=== PATIENT | male | born 1970 | race Caucasian/White ===

== ENCOUNTER 2018-05-28 04:56 | Emergency (ER) | payer BC ==
[2018-05-28] MEDS ORDERED: traMADol TAB* 50 MG PO ONE (05:17)
[2018-05-28] MEDS ORDERED: Amoxicillin/Clavulanate TAB* 875 MG PO ONE (05:17)
--- NOTE | 2018-05-28 05:26 | ED ---
Throat Pain/Nasal Congestion - HPI Summary HPI Summary: Patient is a 47 y/o M w/ c/o left sided H[place], "vertigo", and left ear pain. He reports Sx onset two days ago. He reports experiencing "vertigo" when getting in and out of bed. Patient also reports jaw pain but denies vomiting. He denies PMHx. Patient notes allergy to Advil (patient's eyes puff up, per patient). Despite this, patient reports taking children's Advil [employer]. He reports a similar reaction to Tylenol. Patient denies any known allergies to antibiotics. On triage, pain is rated 5/10, heat is noted to alleviate Sx, nothing is reported to aggravate Sx. Home medications and allergies are reviewed. - History of Current Complaint Chief Complaint: EDEarPain Time Seen by Provider: 05/28/18 05:04 Hx Obtained From: Patient Onset/Duration: Lasting Days - two days onset, Still Present Severity: Moderate - 5/10 Associated Signs And Symptoms: Positive: Negative Cough: None - Allergies/Home Medications Allergies/Adverse Reactions: Allergies Allergy/AdvReac Type Severity Reaction Status Date / Time acetaminophen [From Tylenol] Allergy Unknown Eyes Verified 05/28/18 05:00 Itchy/Swollen/Red/Watery NSAIDS (Non-Steroidal Allergy Unknown Eyes Verified 05/28/18 04:57 Anti-Inflamma Itchy/Swollen/Red/Watery PMH/Surg Hx/FS Hx/Imm Hx Endocrine/Hematology History: Denies: Hx Diabetes Cardiovascular History: Denies: Hx Hypertension, Hx Pacemaker/ICD Respiratory History: Reports: Hx Asthma - years ago - ALLERGY RELATED History: Denies: Hx Renal Disease Sensory History: Denies: Hx Hearing Aid Psychiatric History: Denies: Hx Panic Disorder Infectious Disease History: No Infectious Disease History: Denies: Hx Clostridium Difficile, Hx Hepatitis, Hx Human Immunodeficiency Virus (HIV), Hx of Known/Suspected MRSA, Hx Shingles, Hx Tuberculosis, Hx Known/ Suspected VRE, Hx Known/Suspected VRSA, History Other Infectious Disease, Traveled Outside the [place] in Last 30 Days - Family History Known Family History: Positive: Other - Crohn's disease (brother) - Social History Alcohol Use: Occasionally Alcohol Amount: 2-3 beers 2-3 x per week Substance Use Type: Reports: None Hx Tobacco Use: No Smoking Status (MU): Never Smoked Tobacco Review of Systems Positive: Ear Ache - left ear pain Negative: Vomiting Positive: Other - jaw pain Neurological: Other - "vertigo" Positive: Headache - left sided All Other Systems Reviewed And Are Negative: Yes Physical Exam - Summary Physical Exam Summary: VITAL SIGNS: Reviewed. GENERAL: Patient is a well-developed and nourished male who is lying comfortable in the stretcher. Patient is not in any acute respiratory distress. HEAD AND FACE: No signs of trauma. No ecchymosis, hematomas or skull depressions. No sinus tenderness. EYES: PERRLA, EOMI x 2, No injected conjunctiva, no nystagmus. EARS: Hearing grossly intact. hyperemia of left TM. No other abnormal findings noted. MOUTH: Oropharynx within normal limits. NECK: Supple, trachea is midline, no adenopathy, no JVD, no carotid bruit, no c- spine tenderness, neck with full ROM. CHEST: Symmetric, no tenderness at palpation LUNGS: Clear to auscultation bilaterally. No wheezing or crackles. CVS: Regular rate and rhythm, S1 and S2 present, no murmurs or gallops appreciated. ABDOMEN: Soft, non-tender. No signs of distention. No rebound no guarding, and no masses palpated. Bowel sounds are normal. EXTREMITIES: FROM in all major joints, no edema, no cyanosis or clubbing. NEURO: Alert and oriented x 3. No acute neurological deficits. Speech is normal and follows commands. No meningeal signs. SKIN: Dry and warm Triage Information Reviewed: Yes Vital Signs On Initial Exam: Initial Vitals Temp Pulse Resp BP Pulse Ox 99.5 F 96 20 136/96 98 05/28/18 04:56 05/28/18 04:56 05/28/18 04:56 05/28/18 04:56 05/28/18 04:56 Vital Signs Reviewed: Yes Diagnostics - Vital Signs Vital Signs Temp Pulse Resp BP Pulse Ox 05/28/18 04:56 99.5 F 96 20 136/96 98 - Laboratory Lab Statement: Any lab studies that have been ordered have been reviewed, and results considered in the medical decision making process. Re-Evaluation - Re-Evaluation First Eval Re-Evaluation Time: 05:50 Comment: Patient will be discharged to home and is instructed to follow up with PCP in 1-2 days. EENT Course/Dx - Course Course Of Treatment: Patient is a 47 y/o M w/ c/o left sided H[place], "vertigo", and left ear pain. He reports Sx onset two days ago. He reports experiencing "vertigo" when getting in and out of bed. Patient also reports jaw pain but denies vomiting. He denies PMHx. Patient notes allergy to Advil (patient's eyes puff up, per patient). Despite this, patient reports taking children's Advil [employer]. He reports a similar reaction to Tylenol. Patient denies any known allergies to antibiotics. On triage, pain is rated 5/10, heat is noted to alleviate Sx, nothing is reported to aggravate Sx. Physical exam showed hyperemia of left TM. Neck is supple, no meningeal signs are noted. During ED course, patient was given ultram 50 mg PO ONCE and augmentin 875 mg PO UC ONCE. Patient will be discharged to home and is instructed to follow up with PCP in 1- 2 days. Dx of left otitis media. - Diagnoses Provider Diagnoses: Left otitis media Discharge - Sign-Out/Discharge Documenting (check all that apply): Patient Departure - discharge - Discharge Plan Condition: Stable Disposition: HOME Prescriptions: Amoxicillin/Clavulanate TAB* [Augmentin TAB 875*] 875 mg PO BID #20 tab traMADol TAB* [Ultram*] 50 mg PO Q6HR PRN #14 tab MDD 4 PRN Reason: Pain Patient Education Materials: Ear Infection (ED) Referrals: Son Bermudez MD [Primary Care Provider] - 2 Days Additional Instructions: RETURN TO THE EMERGENCY DEPARTMENT FOR CHANGING OR WORSENING SYMPTOMS. FOLLOW UP WITH PRIMARY CARE PHYSICIAN IN 1-2 DAYS. - Attestation Statements Document Initiated by Scribe: Yes Documenting Scribe: Wander Shah Provider For Whom Scribe is Documenting (Include Credential): Sandra Bertrand MD Scribe Attestation: Wander Schmidt , scribed for Sandra Bertrand MD on 05/28/18 at 0610.
[2018-05-28 06:05] VITALS: BP 130/95
== END 2018-05-28 06:04 | disposition home or self-care (01) ==
LOC: ED 04:56
DX: H66.92 Otitis media, unspecified, left ear (principal); Z88.6 Allergy status to analgesic agent
CPT/HCPCS: 99282; A9270-GY

== ENCOUNTER 2018-05-28 06:10 | Emergency (ER) | payer BC ==
[2018-05-28] MEDS ORDERED: NS 0.9% 1000 ML* 1,000 ML IV ONE (06:24)
[2018-05-28] MEDS ORDERED: Ketorolac INJ* 30 MG/ML 1 ML VIAL IV PUSH ONE (06:25)
[2018-05-28] MEDS ORDERED: Metoclopramide IV* 5 MG/ML 2 ML VIAL IV SLOW PU ONE (06:25)
[2018-05-28] MEDS ORDERED: diPHENhydraMINE IV* 50 MG/ML 1 ml VIAL (BENADRYL) SLOW PUSH ONE (06:25)
--- NOTE | 2018-05-28 06:29 | ED ---
Complex/Multi-Sys Presentation - HPI Summary HPI Summary: Patient is a 47 y/o M w/ c/o nausea, sweating, and feelings of near syncope. He was discharged from the ED minutes ago w/ Dx of left otitis media. During ED course, patient was given ultram 50 mg PO ONCE and augmentin 875 mg PO UC ONCE. While walking to his car, patient reports experiencing nausea, sweating, and feelings of near syncope. Home medications and allergies are reviewed. Patient states he is unsure if he is allergic to ibuprofen or not. On triage, pain is denied. - History Of Current Complaint Chief Complaint: EDDizziness Time Seen by Provider: 05/28/18 06:15 Hx Obtained From: Patient Onset/Duration: Sudden Onset, Lasting Minutes, Still Present Timing: Minutes Severity Currently: None - pain is denied Location: Negative Associated Signs And Symptoms: Positive: Nausea, Diaphoresis, Other - feeling near syncopal - Allergies/Home Medications Allergies/Adverse Reactions: Allergies Allergy/AdvReac Type Severity Reaction Status Date / Time acetaminophen [From Tylenol] AdvReac Mild Eyes Verified 05/28/18 06:11 Itchy/Swollen/Red/Watery NSAIDS (Non-Steroidal AdvReac Mild Eyes Verified 05/28/18 06:11 Anti-Inflamma Itchy/Swollen/Red/Watery PMH/Surg Hx/FS Hx/Imm Hx Endocrine/Hematology History: Denies: Hx Diabetes Cardiovascular History: Denies: Hx Hypertension, Hx Pacemaker/ICD Respiratory History: Reports: Hx Asthma - years ago - ALLERGY RELATED History: Denies: Hx Renal Disease Sensory History: Denies: Hx Hearing Aid Psychiatric History: Denies: Hx Panic Disorder Infectious Disease History: No Infectious Disease History: Denies: Hx Clostridium Difficile, Hx Hepatitis, Hx Human Immunodeficiency Virus (HIV), Hx of Known/Suspected MRSA, Hx Shingles, Hx Tuberculosis, Hx Known/ Suspected VRE, Hx Known/Suspected VRSA, History Other Infectious Disease, Traveled Outside the [place] in Last 30 Days - Family History Known Family History: Positive: Other - Crohn's disease (brother) - Social History Alcohol Use: Occasionally Alcohol Amount: 2-3 beers 2-3 x per week Substance Use Type: Reports: None Hx Tobacco Use: No Smoking Status (MU): Never Smoked Tobacco Review of Systems Positive: Skin Diaphoresis Positive: Nausea Neurological: Other - near syncopal All Other Systems Reviewed And Are Negative: Yes Physical Exam - Summary Physical Exam Summary: VITAL SIGNS: Reviewed. GENERAL: Patient is a well-developed and nourished male who is lying comfortable in the stretcher. Patient is not in any acute respiratory distress. HEAD AND FACE: No signs of trauma. No ecchymosis, hematomas or skull depressions. No sinus tenderness. EYES: PERRLA, EOMI x 2, No injected conjunctiva, no nystagmus. EARS: Hearing grossly intact. MOUTH: Oropharynx within normal limits. Hyperemia of left TM. No other abnormal findings noted. NECK: Supple, trachea is midline, no adenopathy, no JVD, no carotid bruit, no c- spine tenderness, neck with full ROM. CHEST: Symmetric, no tenderness at palpation LUNGS: Clear to auscultation bilaterally. No wheezing or crackles. CVS: Regular rate and rhythm, S1 and S2 present, no murmurs or gallops appreciated. ABDOMEN: Soft, non-tender. No signs of distention. No rebound no guarding, and no masses palpated. Bowel sounds are normal. EXTREMITIES: FROM in all major joints, no edema, no cyanosis or clubbing. NEURO: Alert and oriented x 3. No acute neurological deficits. Speech is normal and follows commands. SKIN: Dry and warm Triage Information Reviewed: Yes Vital Signs On Initial Exam: Initial Vitals Temp Pulse Resp BP Pulse Ox 97.0 F 67 16 127/89 94 05/28/18 06:15 05/28/18 06:15 05/28/18 06:15 05/28/18 06:15 05/28/18 06:15 Vital Signs Reviewed: Yes Diagnostics - Vital Signs Vital Signs Temp Pulse Resp BP Pulse Ox 05/28/18 06:15 97.0 F 67 16 127/89 94 - Laboratory Result Diagrams: 05/28/18 06:35 05/28/18 06:35 Lab Statement: Any lab studies that have been ordered have been reviewed, and results considered in the medical decision making process. - EKG 0630 Cardiac Rate: NL - rate of 80 BPM EKG Rhythm: Sinus Rhythm EKG Interpretation: normal axis, normal interval, no ischemic changes Complex Multi-Symp Course/Dx Course Of Treatment: Patient is a 47 y/o M w/ c/o nausea, sweating, and feelings of near syncope. He was discharged from the ED minutes ago w/ Dx of left otitis media. During ED course, patient was given ultram 50 mg PO ONCE and augmentin 875 mg PO UC ONCE. While walking to his car, patient reports experiencing nausea, sweating, and feelings of near syncope. Home medications and allergies are reviewed. Patient states he is unsure if he is allergic to ibuprofen or not. On triage, pain is denied. Physical exam showed hyperemia of left TM with no other abnormal findings. EKG showed normal sinus rhythm and rate w/ 80 BPM, normal axis, normal intervals, and no ischemic changes. During ED course, patient was given fluids. Patient will be signed out to Dr. Brian at 0700 pending further workup. - Diagnoses Provider Diagnoses: Left otitis media Discharge - Sign-Out/Discharge Documenting (check all that apply): Sign-Out Patient Signing out patient TO: Ambrosio Brian Receiving patient FROM: Sandra Bertrand - Discharge Plan Referrals: Son Bermudez MD [Primary Care Provider] - - Attestation Statements Document Initiated by Scribe: Yes Documenting Scribe: Wander Shah Provider For Whom Lexusibe is Documenting (Include Credential): Sandra Bertrand MD Scribe Attestation: Wander Schmidt , scribed for Sandra Bertrand MD on 05/28/18 at 0757.
[2018-05-28 06:50] LABS: ABS Basophils 0 10^3/ul (0-0.2); ABS Eosinophils 0.1 10^3/ul (0-0.6); ABS Lymphocytes 0.9 10^3/ul (1.0-4.8); ABS Monocytes 0.9 10^3/ul (0-0.8); ABS Nucleated RBC 0 10^3/ul; Eosinophil % 0.9 % (0-6); Hematocrit 42 % (42-52); Hemoglobin 15.3 g/dl (14.0-18.0); Lymphocyte % 12.9 % (25-47); Mean Corpuscular HGB Conc 36 g/dl (31-36); Mean Corpuscular Hemoglobin 32 pg (27-31); Mean Corpuscular Volume 89 fL (80-94); Mean Platelet Volume 9.2 um3 (7.4-10.4); Nucleated Red Blood Cells % 0.1; Platelet Count 177 10^3/ul (150-450); Red Blood Count 4.79 10^6/ul (4.00-5.40); Red Cell Distribution Width 13 % (10.5-15); White Blood Count 6.9 10^3/ul (3.5-10.8)
[2018-05-28 07:02] LABS: INR 0.94 (0.77-1.02)
[2018-05-28 07:17] LABS: EGFR Non-African American 93.6 (>60)
--- NOTE | 2018-05-28 07:55 | ED ---
Progress - Progress Note Progress Note: Receiving sign out from Dr. Bertrand. Patient's blood work was normal, and he will be discharged. Final dx are dizziness and left otitis media. Course/Dx - Course Course Of Treatment: This patient is a 47-year-old male who was signed out by Dr. Bertrand rechecked the blood work and he recommends if the blood work is negative or within normal limits to discharge the patient home. The patient came into the emergency room because he was having some ear pain. The patient was diagnosed with otitis media and he was given Augmentin 875 mg and Ultram. After he did had medications he was discharged and he felt dizzy and became diaphoretic therefore Dr. Bertrand decided to do blood work. He reports that if the blood work is within normal limits the patient and the patient discharged home. I went and spoke with the patient and he reports that he is feeling better. However he still is having some pain in the left ear. Therefore I offered him to the CT of the brain to rule out any intracranial pathology however the patient refused. He reports that he is feeling better and he wants to go home. He also reports that he will come back to the emergency department if the symptoms worsen. I discussed all the findings and test results with the patient. Patient was instructed to return to the emergency room immediately if any of the symptoms return or worsens. Plan of care was discussed with the patient and understands and agrees. All questions were answered at patient satisfaction. There were no further complaints or concerns. Lung exam before discharge: CTA B/L. Good air exchange. No wheezing or crackles heard. CVS: S1 and S2 present. No murmurs appreciated. Patient is alert and oriented x 3. Patient is hemodynamically stable. Patient will be discharged home with follow up PCP in the next 2-3 days. Patient walked out of the emergency room with a good steady walk and he did not have any difficulty ambulating. - Diagnoses Provider Diagnoses: Left otitis media, Dizziness Discharge - Sign-Out/Discharge Documenting (check all that apply): Patient Departure - Discharge, Receiving Sign-Out Receiving patient FROM: Sandra Bertrand - Discharge Plan Condition: Stable Disposition: HOME Patient Education Materials: Dizziness (ED) Referrals: Son Bermudez MD [Primary Care Provider] - 3 Days - Attestation Statements Document Initiated by Scribe: Yes Documenting Scribe: Alexandra Hensley Provider For Whom Scribe is Documenting (Include Credential): Ambrosio Brian MD Scribe Attestation: IAlexandra, scribed for Ambrosio Brian MD on 05/28/18 at 1817.
[2018-05-28 08:02] VITALS: BP 138/87
== END 2018-05-28 08:02 | disposition home or self-care (01) ==
LOC: ED 06:10
DX: H66.92 Otitis media, unspecified, left ear (principal); R42 Dizziness and giddiness; Z88.5 Allergy status to narcotic agent
CPT/HCPCS: 36415; 80053; 82550; 83735; 84443; 84484; 85025; 85610; 85730; 86140; 93005; 99282

== ENCOUNTER 2019-07-27 13:33 | Emergency (ER) | payer BC ==
--- NOTE | 2019-07-27 13:49 | UC ---
Lower Extremity/Ankle HPI - HPI Summary HPI Summary: Patient is a 48yo male presenting with R great toe redness, pain, and swelling for the past few days. Patient states today is the worst and describes pain as burning and sharp and 7/10. Patient states that he believes he has gout. He notes decreased range of motion of great toe due to pain. Denies decreased sensation. Is able to ambulate but it causes pain. Patient notes that he fractured his sesamoid bone a few years back but it doesn't feel like that. Patient states this happened once or twice in the past but it was years ago and it was never worked up. Patient states his father has gout. Patient also notes allergy to Advil but states this pain was so bad earlier that he took Children's Motrin. Notes swelling below his right eyelid. Denies throat, tongue, lip swelling. Denies difficulty breathing. - History of Current Complaint Stated Complaint: FOOT PAIN Hx Obtained From: Patient Onset/Duration: Gradual Onset, Lasting Days Severity Initially: Moderate Severity Currently: Severe Pain Intensity: 7 Pain Scale Used: 0-10 Numeric - Allergies/Home Medications Allergies/Adverse Reactions: Allergies Allergy/AdvReac Type Severity Reaction Status Date / Time acetaminophen [From Tylenol] AdvReac Mild Eyes Verified 07/27/19 13:46 Itchy/Swollen/Red/Watery NSAIDS (Non-Steroidal AdvReac Mild Eyes Verified 07/27/19 13:46 Anti-Inflamma Itchy/Swollen/Red/Watery PMH/Surg Hx/FS Hx/Imm Hx Previously Healthy: Yes - Surgical History Surgical History: None - Family History Known Family History: Positive: Other - Crohn's disease (brother) - Social History Occupation: Employed Part-time Lives: With Family Alcohol Use: Occasionally Alcohol Amount: 2-3 beers 2-3 x per week Substance Use Type: None Smoking Status (MU): Never Smoked Tobacco - Immunization History Most Recent Influenza Vaccination: none Review of Systems All Other Systems Reviewed And Are Negative: Yes Constitutional: Positive: Negative. Negative: Fever, Chills Respiratory: Positive: Negative Cardiovascular: Positive: Negative Neurovascular: Positive: Negative. Negative: Decreased Sensation Musculoskeletal: Positive: Arthralgia - R great toe, Decreased ROM - R great toe flexion, Edema - R great toe and R foot. Negative: Calf Tenderness, Myalgia Neurological: Positive: Negative. Negative: Paresthesia, Numbness Physical Exam Triage Information Reviewed: Yes Appearance: Well-Appearing, No Pain Distress, Well-Nourished Vital Signs: Initial Vital Signs Temp 98 F 07/27/19 13:39 Pulse 83 07/27/19 13:39 Resp 17 07/27/19 13:39 BP 142/96 07/27/19 13:39 Pulse Ox 97 07/27/19 13:39 Vital Signs Reviewed: Yes Eyes: Positive: Conjunctiva Clear ENT: Positive: Hearing grossly normal Neck: Positive: Supple Respiratory Exam: Normal Respiratory: Positive: Lungs clear, Normal breath sounds, No respiratory distress Cardiovascular Exam: Normal Cardiovascular: Positive: RRR, Pulses Normal - strong pedal pulses b/l, Brisk Capillary Refill Musculoskeletal: Positive: ROM Limited @ - R great toe flexion due to pain, Edema @ - R great toe and dorsal R foot, Other: - pain with palpation of R great toe Neurological Exam: Other - sensation grossly intact Neurological: Positive: Alert Psychological: Positive: Age Appropriate Behavior Skin: Positive: Other - erythema and warmth noted over MTP joint of R great toe Diagnostics - Radiology R foot Radiology Interpretation Completed By: Radiologist Summary of Radiographic Findings: IMPRESSION: 1. NO ACUTE FRACTURE. 2. POSSIBLE STIGMATA OF GOUT ABOUT THE MEDIAL HEAD OF THE FIRST METATARSAL. 3. OLD SESAMOID FRACTURE VERSUS BIPARTITE SESAMOID. Lower Extremity Course/Dx - Course Course Of Treatment: Discussed gout with patient and treated with prednisone here. Provided him with prednisone taper for home. Patient unable to take indomethacin due to NSAID allergy. Instructed to follow up with PCP for further eval and management of gout. Patient voiced understanding and agreed with treatment plan. - Differential Dx/Diagnosis Provider Diagnosis: Gout involving toe of right foot Discharge ED - Sign-Out/Discharge Documenting (check all that apply): Patient Departure All imaging exams completed and their final reports reviewed: Yes - Discharge Plan Condition: Stable Disposition: HOME Prescriptions: predniSONE TAB* [Deltasone 10 MG TAB*] 10 mg PO SEE INSTRUCTIONS #10 tab Patient Education Materials: Low Purine Diet (ED), Gout (ED) Referrals: Son Bermudez MD [Primary Care Provider] - As Soon As Possible Additional Instructions: As discussed, take the prednisone as prescribed for your gout flare. You may elevate and ice the toe for pain and swelling relief. Follow up with your primary care physician as soon as possible for further evaluation and management of your gout. - Billing Disposition and Condition Condition: STABLE Disposition: Home
[2019-07-27] MEDS ORDERED: predniSONE TAB* 20 MG PO ONE (14:14)
[2019-07-27 14:24] VITALS: BP 138/98
== END 2019-07-27 14:52 | disposition home or self-care (01) ==
LOC: UCEAST 13:33
DX: M25.571 Pain in right ankle and joints of right foot (principal); M10.9 Gout, unspecified; Z88.6 Allergy status to analgesic agent; Z88.8 Allergy status to other drugs, medicaments and biological substances
CPT/HCPCS: 99212; G0463; J7512